=== PATIENT | female | born 1960 | race Hispanic/Latino ===

== ENCOUNTER 2018-10-19 23:31 | Emergency (ER) | payer SELFPAY ==
[2018-10-19] MEDS ORDERED: Budesonide 0.5 MG/2 ML NEB ONE (23:58)
[2018-10-19] MEDS ORDERED: Albuterol Sulfate 2.5 mg/3 ml Neb ONE ×2 (23:58)
[2018-10-20] MEDS ORDERED: traMADol HCl 50 MG TAB ONE (00:03)
[2018-10-20] MEDS ORDERED: methylPREDNISolone Acetate 40 mg/ml Vial ONE (00:55)
[2018-10-20] MEDS ORDERED: Ketorolac Tromethamine 60 MG/2 ML VIAL ONE (00:55)
--- NOTE | 2018-10-20 07:38 | RAD ---
2 views chest. HISTORY: Dyspnea. Shortness of breath and headache PA and lateral views of the chest obtained. The lungs are well aerated. No evidence of active intrath oracic disease seen. No evidence of effusions, pneumonia or pneumothorax seen. IMPRESSION: Normal 2 views chest.
== END 2018-10-20 01:20 | disposition home or self-care (01) ==
LOC: NAV ERS 23:31
DX: J20.9 Acute bronchitis, unspecified (principal); R51 Headache; I10 Essential (primary) hypertension; F41.9 Anxiety disorder, unspecified; Z79.51 Long term (current) use of inhaled steroids
CPT/HCPCS: 36416; 71046; 94640; 96372; J1030; J1885; J7611; J7620; J7626

== ENCOUNTER 2018-10-20 08:03 | Emergency (ER) | payer SELFPAY ==
[2018-10-20 08:56] LABS: Bilirubin Negative (Negative); Blood, Urine Negative (Negative); Clarity Clear (Clear); Glucose, Urine (Dipstick) 100 mg/dL (Negative); Leukocyte Negative (Negative); Nitrite Negative (Negative); Protein, Urine (Dipstick) 30 mg/dL (Neg-Trace); Urobilinogen 0.2 mg/dL (0.2-1.0)
[2018-10-20 08:58] LABS: #Eosinphils 0.1 thou/uL (0.0-0.7); #Lymphocytes 1.1 thou/uL (1.20-3.40); #Monocytes 0.4 thou/uL (0.11-0.59); #Neutrophils 3.8 thou/uL (1.40-6.50); %Basophils 0.5 % (0.0-1.0); %Eosinophils 2.1 % (0.0-10.0); %Lymphocytes 20.5 % (21.0-51.0); %Monocytes 7.5 % (0.0-10.0); %Neutrophils 69.3 % (42.0-75.0); Mean Corpuscular HGB CONC 32.8 g/dL (32.0-36.0); Mean Corpuscular Hemoglobin 29.1 pg (27.0-31.0); Mean Corpuscular Volume 88.9 fL (78.0-98.0); Mean Platelet Volume 7.6 fL (7.4-10.4); Platelet Count 247 thou/uL (130-400); RBC Distribution Width 11.9 % (11.5-14.5); Red Blood Cell (RBC) Count 4.48 mill/uL (4.20-5.40); White Blood Cell (WBC) Count 5.5 thou/uL (4.8-10.8)
[2018-10-20] MEDS ORDERED: Ondansetron PF 4 MG/2 ML Vial ONE (09:02)
[2018-10-20 09:08] LABS: Bacteria/HPF Rare-Few HPF (None Seen); Other Microscopic Description NO; RBC/HPF None Seen HPF (0-3); Squamous Epithelial 0-3 HPF (0-3); WBC/HPF 0-3 HPF (0-3)
[2018-10-20 09:24] LABS: ALT (SGPT) 19 U/L (8-55); AST (SGOT) 25 U/L (5-34); Albumin 4.4 g/dL (3.5-5.0); Alkaline Phosphatase 82 U/L (40-150); Anion Gap 20 mmol/L (10-20); BUN (Urea Nitrogen) 15 mg/dL (9.8-20.1); Bilirubin, Total 0.4 mg/dL (0.2-1.2); CK (CPK) 130 U/L (29-168); Calc. Creatinine Clearance 0 mL/min (70-130); Calcium 10.1 mg/dL (7.8-10.44); Carbon Dioxide 23 mmol/L (22-29); Chloride 99 mmol/L (98-107); Estimated GFR-MDRD 79; Globulin 3.7 g/dL (2.4-3.5); Glucose 197 mg/dL (70-105); Lipase 17 U/L (8-78); Potassium 5.3 mmol/L (3.5-5.1); Protein, Total 8.1 g/dL (6.0-8.3); Sodium 137 mmol/L (136-145)
== END 2018-10-20 09:52 | disposition home or self-care (01) ==
LOC: NAV ERS 08:03
DX: R11.2 Nausea with vomiting, unspecified (principal); E11.9 Type 2 diabetes mellitus without complications; I10 Essential (primary) hypertension; F41.9 Anxiety disorder, unspecified
CPT/HCPCS: 36415; 80053; 81003; 81015; 82550; 83690; 83880; 84484; 85025; 93005; 96374; J2405